=== PATIENT | male | born 1970 | race Caucasian/White ===

== ENCOUNTER 2016-08-05 08:40 | Emergency (ER) | payer SELFPAY ==
[~2016-08-05] VITALS: Ht 177.8 cm; Wt 80.0 kg
[~2016-08-05 08:40] MED LIST: PENI500T PO
[2016-08-05 08:50] VITALS: BP 131/81; PULSE 69; RESP 20; TEMP 97.7
[2016-08-05] MEDS ORDERED: LIDOCAINE HCL 1% 50 ML VIAL INFIL ONE (09:15)
[2016-08-05] MEDS ORDERED: CLIN1CAP6 PO (09:53)
--- NOTE | 2016-08-05 09:55 | PD ---
HPI Chief Complaint: Oral / Dental Pain or Problem Time Seen by Provider: 09:00 Travel History International Travel<30 days: No Contact w/Intl Traveler<30days: No Traveled to known affect area: No History of Present Illness HPI 46-year-old male presents to the emergency room for evaluation of left upper dental abscess for the past several days. Patient states he's had pain for weeks but did not develop the abscess until recently. He reports minimal foul tasting drainage. Denies fever, chills, nausea, vomiting. He does not have a dentist. PFSH Past Medical History Medical History: Denies Significant Hx Diminished Hearing: No Tetanus Vaccination: < 5 Years Influenza Vaccination: No Past Surgical History Surgical History: No Previous Surgery Social History Alcohol Use: Yes (12 pack per week) Tobacco Use: Yes (1 PPD) Substance Use: Yes (MARIJUANA TWICE A WEEK) Allergies-Medications (Allergen,Severity, Reaction): Coded Allergies: Penicillin (Verified Allergy, Unknown, 08/05/16) Reported Meds & Prescriptions Reported Meds & Active Scripts Active Clindamycin (Clindamycin HCl) 300 Mg Cap 300 Mg PO Q6HR 10 Days Review of Systems Except as stated in HPI: all other systems reviewed are Neg Physical Exam Narrative GENERAL: Well-nourished, well-developed male in no acute distress. Afebrile. Ambulatory. SKIN: Warm and dry. HEAD: Normocephalic. EYES: No scleral icterus. No injection or drainage. DENTAL: Good dentition overall. No loose or chipped teeth. No malocclusion. There is an obvious abscess over tooth #14. It is extremely tender to palpation. There is surrounding erythema. No obvious drainage. No submental, semitubular, or buccal induration. Mild left sided facial swelling. Data Data Last Documented VS Vital Signs Date Time Temp Pulse Resp B/P Pulse Ox O2 Delivery O2 Flow Rate FiO2 08/05/16 08:50 97.7 69 20 131/81 Orders Lidocaine 1% Inj (50 Ml) (Xylocaine 1% I (08/05/16 09:15) Tramadol (Ultram) (08/05/16 10:00) MDM Medical Decision Making Medical Screen Exam Complete: Yes Emergency Medical Condition: Yes Medical Record Reviewed: Yes Differential Diagnosis Gingivitis versus dental abscess versus dentalgia Narrative Course 46-year-old male presents to the emergency room for evaluation of dental abscess that has been ongoing for the past 3 days. There is an obvious dental abscess over tooth #14 that is tender to palpation. Abscess drainage was attempted but patient was not cooperative and swatting at the needle. For his safety and the safety of staff, incision and drainage was stopped. He is discharged with prescription for clindamycin and told to follow up with a dentist or return for worsening symptoms. He understands and agrees to plan. Procedures Procedure Narrative Dental abscess procedure: 22-gauge needle with lidocaine was inserted into the abscess. Incomplete procedure performed due to patient being noncooperative. Diagnosis Primary Impression: Dental abscess Referrals: Dentist Patient Instructions: Dental Abscess (ED), General Instructions Additional Instructions: Rest and drink plenty of fluids. Take clindamycin as directed, until gone. Follow-up with a dentist. Return to the emergency room for worsening symptoms. Med/Other Pt SpecificInfo: Prescription(s) given Scripts Clindamycin 300 Mg [id number] Mg PO Q6HR 10 Days Ref 0 Prov:Roc Caro MD 08/05/16 Disposition: 01 DISCHARGE HOME Condition: Stable Sharmila Elizondo Aug 05, 2016 09:54
[2016-08-05] MEDS ORDERED: traMADol HCL 50 MG TAB PO ONE (10:00)
== END 2016-08-05 10:05 | disposition home or self-care (01) ==
LOC: NEPB 08:40
DX: K04.7 Periapical abscess without sinus (principal)
CPT/HCPCS: 41800

== ENCOUNTER 2017-12-19 12:54 | Emergency (ER) | payer SELFPAY ==
[~2017-12-19] VITALS: Ht 180.3 cm; Wt 71.7 kg
[~2017-12-19 12:54] MED LIST changes: +CLIN300C5 PO; -PENI500T PO
[2017-12-19 13:15] VITALS: BP 124/77; PULSE 96; RESP 18; TEMP 97.9; O2SAT 96
== END 2017-12-19 15:10 | disposition left against medical advice (07) ==
LOC: PHEFT 12:54
DX: R23.9 Unspecified skin changes (principal); Z53.21 Procedure and treatment not carried out due to patient leaving prior to being seen by health care provider
CPT/HCPCS: 99281